=== PATIENT | female | born 1945 | race Caucasian/White ===

== ENCOUNTER → 2017-05-13 | Outpatient (CLI) | payer OTHER ==
[~2017-05-13] MED LIST: CARAFATE1 GM PO; DICLOFENAC PO; IRON TABLETS1 TAB PO; SIMVASTATIN20 MG PO
--- NOTE | ~2017-05-13 | MY29 ---
[facility] A Service of [facility] RADIOLOGY TEXT RESULTS PATIENT: MRAY CANNON LOCATION: [facility] : 41 UNIT #: [id number] AGE: [address]: Andi Whitehead MD SEX: F ORDER DR: [id number] [facility] [address] [place], [place] [address] [id number] O MR#: [id number] Acc #: [id number] NAME: MARY CANNON : 1945 SEX: F STUDY DATE/TIME: 05/13/2017 15:17 UNIT: [facility] ROOM: STUDY DESCRIPTION: MY [facility] SCREENING W/ CAD BILAT Attending Physician: Andi Whitehead M.D. Referring Physician: Andi Whitehead M.D. Ordering Physician: Andi Whitehead M.D. Primary Care Physician: Andi Whitehead M.D. MEDICAL IMAGING REPORT This report is preliminary unless electronic signature is present EXAM Digital screening mammogram 05/13/2017 HISTORY 72-year-old woman, no risk elevation, prior right breast biopsy for cyst. Annual screen. COMPARISON MAMMOGRAMS None available. Prior mammogram [facility] 2 years ago. FINDINGS Digital imaging of each breast was completed utilizing screening protocol. Biopsy marker was placed on the right breast. Review includes FDA-approved CAD device. Breast parenchyma is heterogeneous and mildly dense, with a generalized small nodular parenchymal pattern. There is no dominant mass. There are no suspicious microcalcifications and no architectural deformity. IMPRESSION Benign mammogram. Annual screening recommended. Patients over the age of 40 are entered into a reminder system with target due date for the next mammogram. A result letter will also be sent to the patient. BIRADS: 2 Benign Finding Dictated by... Chidi Walton M.D. THIS IS AN ELECTRONICALLY VERIFIED REPORT Chidi Walton M.D. at 05/14/2017 8:05 AM JBB/psc [facility] A Service of [facility] RADIOLOGY TEXT RESULTS PATIENT: MARY CANNON LOCATION: [facility] #: [id number] : 41 UNIT #: [id number] AGE: [address]: Andi Whitehead MD SEX: F ORDER DR: TD: 05/14/2017 03:23 JOB #: [id number] MEDICAL IMAGING REPORT Page 1 of 1 COPY
== END | disposition home or self-care (01) ==
LOC: CWCC 14:45
DX: Z12.31 Encounter for screening mammogram for malignant neoplasm of breast (principal); Z98.890 Other specified postprocedural states
CPT/HCPCS: G0202